=== PATIENT | female | born 1985 | race Hispanic/Latino ===

== ENCOUNTER 2016-12-30 06:03 | Inpatient (IN) | payer MEDICAID ==
[2016-12-30 06:03] VITALS: BMI 29.9
--- NOTE | 2016-12-30 06:29 | ED PDOC ---
Arrival/HPI - General Chief Complaint: Substance Abuse Time Seen by Provider: 12/30/16 06:18 - History of Present Illness Narrative History of Present Illness (Text): 31 y/o F c PMHx heroin abuse p/w heroin overdose. Patient was found in home unresponsive, lying in vomit with bags/syringe next to her. En route, she was administered narcan with immediate increase in alertness. Patient denies any pain at this time, is apologetic, and states that she was not attempting to hurt herself. She states she was using heroin recreationally. Patient's children 's father earlier this year from heroin overdose. At that time, patient was treated at detox and was sober until she reports 1 week ago. She and mother at bedside are agreeable with detox. Past Medical History - Infectious Disease Hx of Infectious Diseases: None - Tetanus Immunization Tetanus Immunization: Unknown, Up to Date - Past Medical History Past Medical History: No Previous - Cardiac Hx Hypertension: No - Pulmonary Hx Tuberculosis: No - Neurological Hx Seizures: Yes (post withdrawl from drugs) - HEENT Hx HEENT Disorder: No - Renal Hx Renal Disorder: No - Endocrine/Metabolic Hx Endocrine Disorders: No - Hematological/Oncological Hx Cancer: No - Integumentary Hx Dermatological Disorder: No - Musculoskeletal/Rheumatological Hx Arthritis: Yes Hx Falls: No - Gastrointestinal Hx Gall Bladder Disease: Yes - Genitourinary/Gynecological Hx Sexually Transmitted Diseases: No - Psychiatric Hx Anxiety: Yes Hx Depression: Yes Hx Substance Use: Yes - Surgical History Hx Cholecystectomy: Yes - Anesthesia Hx Anesthesia: Yes Hx Anesthesia Reactions: No Hx Malignant Hyperthermia: No - Suicidal Assessment Feels Threatened In Home Enviroment: No Family/Social History Family/Social History: No Known Family HX Smoking Status: Heavy Smoker > 10 Cigarettes Daily Hx Alcohol Use: Yes Hx Substance Use: Yes Substance used: heroin, marion Hx Substance Use Treatment: No Allergies/Home Meds Allergies/Adverse Reactions: Allergies No Known Allergies Allergy (Verified 12/26/15 14:41) Review of Systems - Physician Review All systems were reviewed & negative as marked: Yes - Review of Systems Constitutional: absent: Fevers Respiratory: absent: SOB Cardiovascular: absent: Chest Pain Physical Exam - Physical Exam Narrative Physical Exam (Text): Gen: NAD Head: NC/AT Eyes: PERRL. ENT: Rhinorrhea. Neck: Supple Heart: Regular rate. Lungs: Clear. Breathing spontaneously. SaO2 100% on room air. Abd: Soft, nontender. Neuro: Awake, responds to questions. Vital Signs Temp Pulse Resp BP Pulse Ox 12/30/16 06:18 98.4 F 97 H 14 121/80 100 Medical Decision Making ED Course and Treatment: Will observe for respiratory depression. Patient will be worked up for PES evaluation and detox. Will sign out to ED day team. - RAD Interpretation Radiology Orders: 12/30/16 06:18 CHEST PORTABLE [RAD] Stat Disposition/Present on Arrival - Present on Arrival Any Indicators Present on Arrival: No History of DVT/PE: No History of Uncontrolled Diabetes: No Urinary Catheter: No History of Decub. Ulcer: No History Surgical Site Infection Following: None - Disposition Have Diagnosis and Disposition been Completed?: No Diagnosis: Opiate overdose Disposition Time: 06:31 Condition: STABLE
[2016-12-30 06:44] LABS: BASO # 0.02 K/mm3 (0.0-2.0); BASO % 0.3 % (0.0-3.0); EOS # 0.2 (0.0-0.7); EOS % 3.1 % (1.5-5.0); GRAN # 3.71 (1.4-6.5); GRAN % 57.8 % (50.0-68.0); HEMATOCRIT 39.5 % (36.0-48.0); LYMPH # 1.9 (1.2-3.4); LYMPH % 29.5 % (22.0-35.0); MEAN CELL VOLUME 89.6 fl (80.0-105.0); MEAN CORPUSCULAR HEMOGLOBIN 29.9 pg (25.0-35.0); MEAN CORPUSCULAR HGB CONC 33.4 g/dl (31.0-37.0); MEAN PLATELET VOLUME 10.1 fl (7.0-11.0); MONO # 0.6 (0.1-0.6); MONO % 9.3 % (1.0-6.0); RED CELL DISTRIBUTION WIDTH 13.5 % (11.5-14.5); WHITE BLOOD COUNT 6.4 10^3/ul (4.5-11.0)
[2016-12-30 07:08] LABS: ALB/GLOB RATIO 1.3 (1.1-1.8); ALKALINE PHOSPHATASE 57 U/L (38-126); ALT/SGPT 114 U/L (7-56); AST/SGOT 192 U/L (14-36); BLOOD UREA NITROGEN 11 mg/dL (7-21); CALCIUM 9.1 mg/dL (8.4-10.5); CARBON DIOXIDE 28 mmol/L (21-33); CHLORIDE 109 mmol/L (95-110); GFR AFRICAN-AMERICAN > 60; GLUCOSE,RANDOM 80 mg/dL (70-110); POTASSIUM 3.9 mmol/L (3.6-5.0); SODIUM 145 mmol/L (132-148); TOTAL PROTEIN 7.5 g/dL (5.8-8.3)
[2016-12-30 07:31] LABS: URINE BILIRUBIN NEGATIVE (NEGATIVE); URINE BLOOD NEGATIVE (NEGATIVE); URINE GLUCOSE (UA) NEGATIVE (NEGATIVE); URINE KETONE NEGATIVE (NEGATIVE); URINE LEUKOCYTE ESTERASE NEGATIVE Leu/uL (NEGATIVE); URINE PROTEIN 30 mg/dL (<30 mg/dL); URINE UROBILINOGEN 0.2 E.U./dL (<1 E.U./dL)
[2016-12-30 07:37] LABS: URINE APPEARANCE CLEAR (CLEAR); URINE COLOR YELLOW (YELLOW)
[2016-12-30 07:42] LABS: URINE BACTERIA FEW (NEG); URINE RBC NEGATIVE /hpf (0-2); URINE WBC 0 - 2 /hpf (0-6)
--- NOTE | 2016-12-30 09:55 | ED PDOC ---
Physical Exam Vital Signs Reviewed: Yes Vital Signs Temp Pulse Resp BP Pulse Ox 12/30/16 08:45 92 H 16 111/53 L 98 12/30/16 06:18 98.4 F 97 H 14 121/80 100 Temperature: Afebrile Appearance: Positive for: Well-Appearing, Non-Toxic, Comfortable Mental Status: Positive for: Alert and Oriented X 3 - Systems Exam Head: Present: Atraumatic Mouth: Present: Dry Pharnyx: No: ERYTHEMA Neck: Present: Normal Range of Motion Medical Decision Making ED Course and Treatment: 12/30/16 09:55 Patient endorsed to me from previous shift. I reviewed chart and re-examined patient. On exam, patient is awake, alert, no slurred speech. Denies headache, chest pain or shortness of breath. DENIES ABDOMINAL PAIN OR BLEEDING. No cough or fever. Urine triage results reviewed with patient and risks of drug abuse reviewed with patient. Patient has been cleared on previous shift for PES evaluation. PES has evaluated patient and patient agreeable to admission for history of depression and substance abuse. With serial exams in ED she is in no respiratory distress and is neurologically intact. Urine results and beta hcg reviewed with patient in laymen's terms. She states she has been sexually active. Denies abdominal pain or vaginal bleeding or urinary symptoms. 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 - Lab Interpretations Lab Results: 12/30/16 06:30 12/30/16 06:30 Lab Results 12/30/16 07:00: Urine Color Yellow, Urine Appearance Clear, Urine pH 6.0, Ur Specific [place] 1.025, Urine Protein 30 H, Urine Glucose (UA) Negative, Urine Ketones Negative, Urine Blood Negative, Urine Nitrate Negative, Urine Bilirubin Negative, Urine Urobilinogen 0.2, Ur Leukocyte Esterase Negative, Urine RBC Negative, Urine WBC 0 - 2, Ur Epithelial Cells 3 - 4, Urine Bacteria Few, Urine HCG, Qual Positive 12/30/16 07:00: Urine Opiates Screen Positive H, Urine Methadone Screen Negative , Ur Barbiturates Screen Negative, Ur Phencyclidine Scrn Negative, Ur Amphetamines Screen Negative, U Benzodiazepines Scrn Positive H, U Oth Cocaine Metabols Positive H, U Cannabinoids Screen Negative 12/30/16 06:30: Beta HCG, Quant 55.48 H 12/30/16 06:30: Alcohol, Quantitative 133 H 12/30/16 06:30: Salicylates < 1 L, Acetaminophen < 10.0 L 12/30/16 06:30: Sodium 145, Potassium 3.9, Chloride 109, Carbon Dioxide 28, Anion Gap 12, BUN 11, Creatinine 1.0, Est GFR ( Amer) > 60, Est GFR (Non- Af Amer) > 60, Random Glucose 80, Calcium 9.1, Total Bilirubin 1.0, AST 192 H, ALT 114 H, Alkaline Phosphatase 57, Total Protein 7.5, Albumin 4.2, Globulin 3.3 , Albumin/Globulin Ratio 1.3 12/30/16 06:30: WBC 6.4, RBC 4.41, Hgb 13.2, Hct 39.5, MCV 89.6, MCH 29.9, MCHC 33.4, RDW 13.5, Plt Count 241, MPV 10.1, Gran % 57.8, Lymph % (Auto) 29.5, [place] % (Auto) 9.3 H, Eos % (Auto) 3.1, Baso % (Auto) 0.3, Gran # 3.71, Lymph # 1.9, [place] # 0.6, Eos # 0.2, Baso # 0.02 - Medication Orders Current Medication Orders: Discontinued Medications Ondansetron HCl (Zofran Inj) 4 mg IVP STAT STA Stop: 12/30/16 06:42 Disposition/Present on Arrival - Present on Arrival Any Indicators Present on Arrival: No History of DVT/PE: No History of Uncontrolled Diabetes: No Urinary Catheter: No History of Decub. Ulcer: No History Surgical Site Infection Following: None - Disposition Have Diagnosis and Disposition been Completed?: Yes Diagnosis: Opiate overdose, Depression Disposition: HOSPITALIZED Disposition Time: 08:00 Patient Plan: Admission Patient Problems: Current Active Problems Problem Status Onset Opiate overdose Acute Condition: STABLE Forms: [employer] (Kiswahili)
[2016-12-30] MEDS ORDERED: Alum-Mag Hydrox-Simethicone Susp (30 mL) PO PRN (13:25)
[2016-12-30] MEDS ORDERED: Magnesium Hydroxide Susp 30 ml UD PO PRN (13:25)
--- NOTE | 2016-12-30 14:04 | PCM.BM ---
<Jagdish Lawrence - Last Filed: 12/30/16 14:03> Treatment Plan Problems - Problems identified on initial assessmt Hopelessness Date Initiated: 12/30/16 Time Initiated: 14:03 Assessment reference: NA Status: Active Priority: 1 Ineffective Coping Date Initiated: 12/30/16 Time Initiated: 14:03 Assessment reference: NA Status: Active Priority: 2 Treatment assets and liabiliti Patient Assests: cooperative, self-reliant, ADL independent, physically healthy , good support system, negotiates basic needs, cognitively intact, good interpersonal skills Patient Liabilities: relationship conflicts, substance abuse Discharge/Continuing Care - Education Needs Education Needs: Patient Medication, Patient Diagnosis/Disease Process, Patient Coping Skills, Patient Aftercare Safety Plan - Discharge Discharge Criteria: Tolerates medication w/o severe side effects, Normal sleep pattern, Ability to care for self, No longer exhibiting s/s of withdrawal, Reduction of target symptoms Discharge to:: Home <Concetta Aguilar - Last Filed: 12/31/16 16:08> - Diagnosis (1) Substance induced mood disorder Status: Acute Interventions: 12/31/16 16:08 Maintaining sobriety Relapse prevention Psychoeducation Psychopharmacology/adjustment of medications as needed/ monitoring possible side effects Evaluate pt on daily basis Compliance with medications and follow up appointments Suicide and homicide risk assessment and prevention Relapse prevention Reduction of symptoms Improve functional status Family involvement As outpatient: cognitive behavioral therapy (2) Opioid use disorder, moderate, dependence Status: Acute Interventions: 12/31/16 16:08 Monitoring withdrawal symptoms Medical detoxification Pharmacotherapy for alcohol/benzos/opioid dependence Maintaining sobriety Relapse prevention Possible rehabilitation Motivational interviewing 12-step programs: AA meetings <Madeline Graham - Last Filed: 12/31/16 16:33>
[2016-12-31 08:03] LABS: CHOLESTEROL 148 mg/dL (130-200); GLUCOSE,FASTING 89 mg/dL (65-110)
[2016-12-31 08:12] LABS: FREE T4 0.83 ng/dL (0.78-2.19)
[2016-12-31 08:26] LABS: THYROID STIMULATING HORMONE 0.41 mIU/mL (0.46-4.68)
--- NOTE | 2016-12-31 10:20 | CARD ---
APPROVED REPORT EKG Measurement Heart [id number] <Conclusion> Normal sinus rhythm Normal ECG
--- NOTE | 2016-12-31 14:36 | PCM.PSYCH ---
Initial Psychiatric Evaluation - Initial Psychiatric Evaluation Type of Admission: Voluntary Legal Status: Capacity Chief Complaint (in patient's own words): "I was careless if I am or alive" Patient's Reaction to Hospitalization: pt was admitted to r/o s/p intentional overdose on opioids. History of Present Illness and Precipitating Events: shortly pt is 31 yo Female, with h/o substance use disorder, pt was found unresponsive by family member, pt was given narcan with immediate response, pt was admitted to the psych unit for evaluation and observation of possible intentional overdose on drugs. pt was seen and examined, discussed with RNs, staff. pt presented with good personal hygiene, was calm, cooperative, socially appropriate, good ADLs. pt adamantly denied that she wanted to kill herself prior to this hospitalization, but "I was careless if I was of alive when they interviewed me at the Emergency room", pt said she wanted to be admitted because she realized that she needed to have help with her depressive symptoms. pt said that her in February 2016, s/p overdose on drugs, pt said she was clean and sober for the past 9months but relapsed "two to three weeks ago". pt said she was snorting about five bags of heroin a day, every other day bag of cocaine, and was drinking alcohol every other day. pt said that she was feeling guilty about her relapse. pt said that she was feeling depressed because her , "but I was able to function", pt said that she was not feeling hopeless but "I have my moments", pt also said at times she "could cry at the shower and be okay afterwards". pt denied being abused reported that she smokes about a pack a day, counseling provided. pt denied v/a/t hallucinations, no paranoid ideation elicited. no manic symptoms elicited. past psych h/o: [facility]. pt denied suicidal attempts, denied suicide in the family. pt reported family h/o "mental illness", but not sure what mental illness. Medical h/o: pt denied any major medical issues, h/o abnormal Pap smear, UA and blood work showed pt is . all meds were stopped, MVI started, pt was seen by medical team, d/w . social h/o: pt does not work, mother of 3, pt's mother has custody over pt's kids, but pt has visitation rights. Vital Signs Temp Pulse Resp BP Pulse Ox 12/31/16 06:58 98.2 F 58 L 18 111/72 98 12/30/16 16:00 76 91/56 L 12/30/16 11:58 16 12/30/16 10:00 98.2 F 90 18 120/78 99 12/30/16 08:45 92 H 16 111/53 L 98 12/30/16 06:18 98.4 F 97 H 14 121/80 100 12/30/16 06:30 12/30/16 06:30 Lab Results 12/31/16 07:39: Free T4 0.83, TSH 3rd Generation 0.41 L 12/31/16 07:39: Fasting Glucose 89, Triglycerides 125, Cholesterol 148, LDL Cholesterol Direct 97, HDL Cholesterol 39 12/30/16 07:00: Urine Color Yellow, Urine Appearance Clear, Urine pH 6.0, Ur Specific [place] 1.025, Urine Protein 30 H, Urine Glucose (UA) Negative, Urine Ketones Negative, Urine Blood Negative, Urine Nitrate Negative, Urine Bilirubin Negative, Urine Urobilinogen 0.2, Ur Leukocyte Esterase Negative, Urine RBC Negative, Urine WBC 0 - 2, Ur Epithelial Cells 3 - 4, Urine Bacteria Few, Urine HCG, Qual Positive 12/30/16 07:00: Urine Opiates Screen Positive H, Urine Methadone Screen Negative , Ur Barbiturates Screen Negative, Ur Phencyclidine Scrn Negative, Ur Amphetamines Screen Negative, U Benzodiazepines Scrn Positive H, U Oth Cocaine Metabols Positive H, U Cannabinoids Screen Negative 12/30/16 06:30: Beta HCG, Quant 55.48 H 12/30/16 06:30: Alcohol, Quantitative 133 H 12/30/16 06:30: Salicylates < 1 L, Acetaminophen < 10.0 L 12/30/16 06:30: Sodium 145, Potassium 3.9, Chloride 109, Carbon Dioxide 28, Anion Gap 12, BUN 11, Creatinine 1.0, Est GFR ( Amer) > 60, Est GFR (Non- Af Amer) > 60, Random Glucose 80, Calcium 9.1, Total Bilirubin 1.0, AST 192 H, ALT 114 H, Alkaline Phosphatase 57, Total Protein 7.5, Albumin 4.2, Globulin 3.3 , Albumin/Globulin Ratio 1.3 12/30/16 06:30: WBC 6.4, RBC 4.41, Hgb 13.2, Hct 39.5, MCV 89.6, MCH 29.9, MCHC 33.4, RDW 13.5, Plt Count 241, MPV 10.1, Gran % 57.8, Lymph % (Auto) 29.5, [place] % (Auto) 9.3 H, Eos % (Auto) 3.1, Baso % (Auto) 0.3, Gran # 3.71, Lymph # 1.9, [place] # 0.6, Eos # 0.2, Baso # 0.02 MSE: pt was alert, oriented, pleasant and cooperative, speech: normal rate/tone/ quality and quantity, pt described her mood as "okay", pt's affect was reactive , mood congruent, thought process was coherent and goal directed, thought content: denied v/a/t hallucinations, denied paranoid ideation/ pt denied thoughts of harming self or others, I/J are limited, impulses are well controlled. Impression: r/o MDD r/o substance induced mood disorder r/o polysubstance abuse and dependence opioid addiction no physical signs of withdrawals ? Plan: Treatment plan: Milieu/structure/supportive therapy Medical consult appreciated, see medical team note for more detailed info consultation for discharge plan and social issues Med management, all meds were d/c (pt might be ) will start MVI Family involvement Follow up on labs Will monitor closely evaluation for d/c planning Pt was educated about risk/benefits and alternatives of medications, coping strategies (safety plan, suicide prevention), relapse prevention, importance of follow up with psychiatrist and therapist, stay away from drugs/alcohol/smoking Current Medications: Active Medications Generic Name Dose Route Start Last Admin Trade Name Freq PRN Reason Stop Dose Admin Acetaminophen 650 mg 12/30/16 13:25 Tylenol 325mg Tab PO Q4 PRN Pain, Mild (1-3) Al Hydrox/Mg Hydrox/Simethicone 30 ml 12/30/16 13:25 Maalox Plus 30 Ml PO DAILY PRN Upset Stomach Clonidine HCl 0.1 mg 12/30/16 13:26 12/30/16 14:18 Catapres PO 0.1 mg Q12H PRN Administration Symptoms of Opiate Withdrawal Lorazepam 0.5 mg 12/31/16 11:55 Ativan PO BID PRN Anxiety Protocol Magnesium Hydroxide 30 ml 12/30/16 13:25 Milk Of Magnesia PO DAILY PRN Constipation Multivitamins 1 tab 01/01/17 08:00 Thera Tab PO 0800 GARY Nicotine 1 patch 12/30/16 14:00 12/31/16 08:27 Nicoderm Cq TD 1 patch DAILY GARY Administration Zaleplon 5 mg 12/30/16 13:26 12/30/16 21:26 Sonata PO 5 mg HS PRN Administration Insomnia Past Psychiatric History - Past Psychiatric History Pertinent Medical Hx (Current Medical&Sleep Prob, Allergies): Allergies Allergy/AdvReac Type Severity Reaction Status Date / Time No Known Allergies Allergy Verified 12/30/16 06:27 RX: No Known Home Med 12/30/16 DSM 5 DX - Recommended/Plan of Treatment Discharge Plan and Discharge Criteria: Pt will be not depressed or manic, will be more hopeful, will be not psychotic or anxious, will be not having thoughts of harming self or others, will be tolerating medications well, will not have major side effects, will be able to function, will not pose threat to self or others. - Smoking Cessation Smoking Cessation Initiated: Yes
--- NOTE | 2016-12-31 21:22 | CON ---
DATE: HISTORY OF PRESENT ILLNESS: The patient is a 31-year-old who came to emergency room when she was found unresponsive at home. She was found to overdose on heroin. She vomited on the bag and the syringe was next to her. She was given Narcan and the patient became responsive. By the time, the patient came to ER, she was awake and alert. Upon inquiring on examination, the patient seems to be doing well. She is more concerned about her positive test. The patient states she was and had 2 kids and her in February. She recently got into one relationship lately. Other than that she has no significant past medical history. ALLERGIES: SHE IS NOT ALLERGIC TO ANY MEDICATIONS. MEDICATIONS: She does not take any medications at home. SOCIAL HISTORY: She was , but currently she is single. She does have a history of drug abuse especially heroin. She does drink alcohol. She smokes almost half a pack a day. PHYSICAL EXAMINATION: GENERAL: She is awake, alert, oriented, and communicative. VITAL SIGNS: She is afebrile, pulse 58, respirations 18, and blood pressure 111/52. LUNGS: Bilateral fair airflow. No rhonchi or crackle. HEART: S1 and S2 audible. ABDOMEN: Soft and nontender. No rebound. No guarding. NEUROLOGIC: The patient is awake, alert, oriented, and able to communicate. LABORATORY DATA: WBC 6.4, hemoglobin 13, hematocrit 39, and platelet of 241. Chemistry: Sodium 145, potassium 3.9, chloride 109, CO2 of 28, BUN 11, and creatinine 1.0. Blood sugar of 80. LFT shows AST 192 and ALT 114. Beta hCG is 55.4. TSH is suppressed. Urine test is positive. Urine tox positive for opioids. Alcohol level is 133. She is also positive for cocaine and benzodiazepines. ASSESSMENT: 1. Status post heroin overdose. 2. Abnormal liver function tests. 3. Alcohol abuse. 4. Positive test. The patient states because of abnormal Pap smear, she had partial cervical excision done. She states she did not get for more than 7 to 8 years and she does not know how she got at this time. PLAN: I will order for transvaginal sonogram, order for abdominal sonogram to rule out cholelithiasis and I also order for hepatitis profile for morning and see her trend of LFTs if it is going up or down, so we will repeat LFTs in a.m. Abimael Alvarado MD
--- NOTE | 2016-12-31 22:59 | US ---
EXAM: US , Transvaginal CLINICAL HISTORY: 31 years old, female; Pain; complicated by abdominal or pelvic pain; Lower; First trimester; Gestational age or lmp: Urine teast positive; Additional info: Positive preg TECHNIQUE: Real-time transvaginal obstetrical ultrasound of the maternal pelvis and a first trimester with image documentation. Transvaginal imaging was used for better evaluation of the fetus and adnexa. COMPARISON: No relevant prior studies available. FINDINGS: Gestation: No intrauterine gestation is identified. Placenta/amniotic fluid: Cannot be adequately evaluated due to the early gestational age. Uterus/cervix: A trilaminar appearance to the endometrium is present without thickening measuring 5 mm. Ovaries: The right ovary is unremarkable in echogenicity and size measuring 3.4 x 1.3 x 1.6 cm. The left ovary measures 3.5 x 2.6 x 2.2 cm. Within the left ovary is a complex cystic focus measuring 12 x 9 x 12 mm, possibly a corpus luteal cyst. Free fluid: No free fluid. IMPRESSION: No intrauterine gestation is detected. Complex cystic focus within the left ovary, for which correlation with serum beta-hCG is recommended. Serial beta hCG and short term followup is recommended.
[2017-01-01 06:54] VITALS: O2SAT 100
[2017-01-01 08:18] LABS: ALB/GLOB RATIO 1.3 (1.1-1.8); ALKALINE PHOSPHATASE 55 U/L (38-126); ALT/SGPT 65 U/L (7-56); AST/SGOT 37 U/L (14-36); BILIRUBIN,TOTAL 1.9 mg/dL (0.2-1.3); BLOOD UREA NITROGEN 8 mg/dL (7-21); CALCIUM 9.6 mg/dL (8.4-10.5); CARBON DIOXIDE 29 mmol/L (21-33); CHLORIDE 108 mmol/L (98-107); GFR AFRICAN-AMERICAN > 60; GLUCOSE,RANDOM 100 mg/dL (70-110); SODIUM 141 mmol/L (132-148); TOTAL PROTEIN 7.2 g/dL (5.8-8.3)
[2017-01-01] MEDS: Multivitamin Therapeutic Tab PO SCH (08:38)
--- NOTE | 2017-01-01 09:44 | US ---
HISTORY: liver profile abnormal COMPARISON: None. TECHNIQUE: Sonographic evaluation of the abdomen. FINDINGS: LIVER: Measures 14.4 cm. Diffusely increased echogenicity of the liver parenchyma. Consistent with fatty infiltration. No mass. No biliary dilatation. Smooth contour. Hepatopetal portal venous flow demonstrated. GALLBLADDER: Status post cholecystectomy. COMMON BILE DUCT: Measures 4 mm. No stones. No dilatation. PANCREAS: Unremarkable as visualized. No mass. No ductal dilatation. RIGHT KIDNEY: Measures 11.2cm. Normal echogenicity. No calculus, mass, or hydronephrosis. LEFT KIDNEY: Measures 10.7cm. Normal echogenicity. No calculus, mass, or hydronephrosis. SPLEEN: Normal in size and contour. No mass. AORTA: No aneurysmal dilatation. IVC: Unremarkable. OTHER FINDINGS: None. IMPRESSION: Fatty infiltration of the liver. Status post cholecystectomy. Otherwise unremarkable examination. Preliminary interpretation of this examination was reported by [facility] at 8:15 p.m. on 12/31/2016. There is concurrence of this report with the preliminary interpretation.
--- NOTE | 2017-01-01 14:39 | PCM.PYCHPN ---
Psychiatric Progress Note - Psychiatric Progress Note Patient seen today, length of contact: 30min Patient Chief Complaint: "I am in pain, I feel very anxious, I am withdrawing..." Medical Problems: abnormal papsmear pt is not , pelvic USG negative for Diagnostic Results: 12/30/16 06:30 01/01/17 07:50 Lab Results 01/01/17 07:50: Sodium 141, Potassium 4.0, Chloride 108 H, Carbon Dioxide 29, Anion Gap 8 L, BUN 8, Creatinine 0.9, Est GFR ( Amer) > 60, Est GFR (Non- Af Amer) > 60, Random Glucose 100, Calcium 9.6, Total Bilirubin 1.9 H, AST 37 H D, ALT 65 H, Alkaline Phosphatase 55, Total Protein 7.2, Albumin 4.1, Globulin 3.2, Albumin/Globulin Ratio 1.3 12/31/16 07:39: RPR Nonreactive 12/31/16 07:39: Free T4 0.83, TSH 3rd Generation 0.41 L 12/31/16 07:39: Fasting Glucose 89, Triglycerides 125, Cholesterol 148, LDL Cholesterol Direct 97, HDL Cholesterol 39 12/30/16 07:00: Urine Color Yellow, Urine Appearance Clear, Urine pH 6.0, Ur Specific [place] 1.025, Urine Protein 30 H, Urine Glucose (UA) Negative, Urine Ketones Negative, Urine Blood Negative, Urine Nitrate Negative, Urine Bilirubin Negative, Urine Urobilinogen 0.2, Ur Leukocyte Esterase Negative, Urine RBC Negative, Urine WBC 0 - 2, Ur Epithelial Cells 3 - 4, Urine Bacteria Few, Urine HCG, Qual Positive 12/30/16 07:00: Urine Opiates Screen Positive H, Urine Methadone Screen Negative , Ur Barbiturates Screen Negative, Ur Phencyclidine Scrn Negative, Ur Amphetamines Screen Negative, U Benzodiazepines Scrn Positive H, U Oth Cocaine Metabols Positive H, U Cannabinoids Screen Negative 12/30/16 06:30: Beta HCG, Quant 55.48 H 12/30/16 06:30: Alcohol, Quantitative 133 H 12/30/16 06:30: Salicylates < 1 L, Acetaminophen < 10.0 L 12/30/16 06:30: Sodium 145, Potassium 3.9, Chloride 109, Carbon Dioxide 28, Anion Gap 12, BUN 11, Creatinine 1.0, Est GFR ( Amer) > 60, Est GFR (Non- Af Amer) > 60, Random Glucose 80, Calcium 9.1, Total Bilirubin 1.0, AST 192 H, ALT 114 H, Alkaline Phosphatase 57, Total Protein 7.5, Albumin 4.2, Globulin 3.3 , Albumin/Globulin Ratio 1.3 12/30/16 06:30: WBC 6.4, RBC 4.41, Hgb 13.2, Hct 39.5, MCV 89.6, MCH 29.9, MCHC 33.4, RDW 13.5, Plt Count 241, MPV 10.1, Gran % 57.8, Lymph % (Auto) 29.5, [place] % (Auto) 9.3 H, Eos % (Auto) 3.1, Baso % (Auto) 0.3, Gran # 3.71, Lymph # 1.9, [place] # 0.6, Eos # 0.2, Baso # 0.02 Vital Signs Temp Pulse Resp BP Pulse Ox 01/01/17 08:38 57 L 128/64 01/01/17 06:53 98.4 F 57 L 20 128/64 100 12/31/16 17:55 80 122/77 12/31/16 15:00 99.1 F 81 122/77 12/31/16 06:58 98.2 F 58 L 18 111/72 98 12/30/16 16:00 76 91/56 L 12/30/16 11:58 16 12/30/16 10:00 98.2 F 90 18 120/78 99 12/30/16 08:45 92 H 16 111/53 L 98 12/30/16 06:18 98.4 F 97 H 14 121/80 100 pelvic USG negative for intrauterum gestation abdomnial USG showed fatty infiltration of liver DSM 5 Symptoms Update: shortly pt is 31 yo Female, with h/o substance use disorder, pt was found unresponsive by family member, pt was given narcan with immediate response, pt was admitted to the psych unit for evaluation and observation of possible intentional overdose on drugs. pt was seen and examined, discussed with RNs, staff. pt was seen at the tx team meeting room with LINNEA Joseph. pt said she is not doing well, said that she had a "worst night ever". pt said she is withdrawing and feeling very anxious, "I was not able to sleep at all. pt is aware of the result of USG, "I am happy that I am not and my mind is not occupied with this, I could concentrate on rehab and things what I need to do". pt denied v/a/t hallucinations, no paranoid ideation elicited. no manic symptoms elicited. MSE: pt was alert, oriented, pleasant and cooperative, speech: normal rate/tone/ quality and quantity, pt described her mood as "okay, now I need to concentrate on my addiction", pt's affect was reactive, mood congruent, thought process was coherent and goal directed, thought content: denied v/a/t hallucinations, denied paranoid ideation/ pt denied thoughts of harming self or others, I/J are limited, impulses are well controlled. Impression: r/o MDD r/o adjustment disorder r/o grief r/o substance induced mood disorder r/o polysubstance abuse and dependence opioid addiction no physical signs of withdrawals no intrauterine Plan: Treatment plan: Milieu/structure/supportive therapy Medical consult appreciated, see medical team note for more detailed info SW consultation for discharge plan and social issues Med management ativan 1mg po qid for anxiety trazodone for depression and insomnia MVI will f/u on Beta CGT tomorrow Family involvement Follow up on labs Will monitor closely SW evaluation for d/c planning Pt was educated about risk/benefits and alternatives of medications, coping strategies (safety plan, suicide prevention), relapse prevention, importance of follow up with psychiatrist and therapist, stay away from drugs/alcohol/smoking Medication Change: Yes (ativan and trazodone started) Medical Record Reviewed: Yes Consults ordered or reviewed: medical consult appreciated Goal/Treatment Plan - Goal/Treatment Plan Need for Continued Stay: Remain at risks for inpatient hospitalization, Severe depression anxiety, Discharge may exacerbated symptoms, Severe functional impairment Estimated Date of D/C: 01/03/17 (will monitor closely)
[2017-01-02] MEDS: Multivitamin Therapeutic Tab PO SCH (08:08)
--- NOTE | 2017-01-02 08:53 | PN ---
DATE: 01/01/2017 SUBJECTIVE: The patient is a 31-year-old, was admitted after she was found unresponsive. She was found to have drug. She was positive for opiates, benzodiazepine, and cocaine in her urine drug screen. The patient had partial cervical excision done and she was found to have positive hCG, however, transvaginal sonogram shows no intrauterine gestation. Right ovary is unremarkable and left ovary measured 3.5 x 2.6 x 2.2 and left ovary has a complex cyst. Given these findings, she has positive beta-hCG. We will order for one beta-hCG level for the morning since transvaginal sonogram is inconclusive. We will do serial beta-hCG to see if this is advancing or choriocarcinoma and we will follow up with patient's lab work. Abimael Alvarado MD
--- NOTE | 2017-01-02 15:40 | PCM.PYCHPN ---
Psychiatric Progress Note - Psychiatric Progress Note Patient seen today, length of contact: 30min Patient Chief Complaint: "I feel up and down" Medical Problems: abnormal papsmear pt might be Diagnostic Results: 12/30/16 06:30 01/01/17 07:50 Lab Results 01/01/17 07:50: Sodium 141, Potassium 4.0, Chloride 108 H, Carbon Dioxide 29, Anion Gap 8 L, BUN 8, Creatinine 0.9, Est GFR ( Amer) > 60, Est GFR (Non- Af Amer) > 60, Random Glucose 100, Calcium 9.6, Total Bilirubin 1.9 H, AST 37 H D, ALT 65 H, Alkaline Phosphatase 55, Total Protein 7.2, Albumin 4.1, Globulin 3.2, Albumin/Globulin Ratio 1.3 12/31/16 07:39: RPR Nonreactive 12/31/16 07:39: Free T4 0.83, TSH 3rd Generation 0.41 L 12/31/16 07:39: Fasting Glucose 89, Triglycerides 125, Cholesterol 148, LDL Cholesterol Direct 97, HDL Cholesterol 39 12/30/16 07:00: Urine Color Yellow, Urine Appearance Clear, Urine pH 6.0, Ur Specific [place] 1.025, Urine Protein 30 H, Urine Glucose (UA) Negative, Urine Ketones Negative, Urine Blood Negative, Urine Nitrate Negative, Urine Bilirubin Negative, Urine Urobilinogen 0.2, Ur Leukocyte Esterase Negative, Urine RBC Negative, Urine WBC 0 - 2, Ur Epithelial Cells 3 - 4, Urine Bacteria Few, Urine HCG, Qual Positive 12/30/16 07:00: Urine Opiates Screen Positive H, Urine Methadone Screen Negative , Ur Barbiturates Screen Negative, Ur Phencyclidine Scrn Negative, Ur Amphetamines Screen Negative, U Benzodiazepines Scrn Positive H, U Oth Cocaine Metabols Positive H, U Cannabinoids Screen Negative 12/30/16 06:30: Beta HCG, Quant 55.48 H 12/30/16 06:30: Alcohol, Quantitative 133 H 12/30/16 06:30: Salicylates < 1 L, Acetaminophen < 10.0 L 12/30/16 06:30: Sodium 145, Potassium 3.9, Chloride 109, Carbon Dioxide 28, Anion Gap 12, BUN 11, Creatinine 1.0, Est GFR ( Amer) > 60, Est GFR (Non- Af Amer) > 60, Random Glucose 80, Calcium 9.1, Total Bilirubin 1.0, AST 192 H, ALT 114 H, Alkaline Phosphatase 57, Total Protein 7.5, Albumin 4.2, Globulin 3.3 , Albumin/Globulin Ratio 1.3 12/30/16 06:30: WBC 6.4, RBC 4.41, Hgb 13.2, Hct 39.5, MCV 89.6, MCH 29.9, MCHC 33.4, RDW 13.5, Plt Count 241, MPV 10.1, Gran % 57.8, Lymph % (Auto) 29.5, [place] % (Auto) 9.3 H, Eos % (Auto) 3.1, Baso % (Auto) 0.3, Gran # 3.71, Lymph # 1.9, [place] # 0.6, Eos # 0.2, Baso # 0.02 Vital Signs Temp Pulse Resp BP Pulse Ox 01/01/17 08:38 57 L 128/64 01/01/17 06:53 98.4 F 57 L 20 128/64 100 12/31/16 17:55 80 122/77 12/31/16 15:00 99.1 F 81 122/77 12/31/16 06:58 98.2 F 58 L 18 111/72 98 12/30/16 16:00 76 91/56 L 12/30/16 11:58 16 12/30/16 10:00 98.2 F 90 18 120/78 99 12/30/16 08:45 92 H 16 111/53 L 98 12/30/16 06:18 98.4 F 97 H 14 121/80 100 pelvic USG negative for intrauterum gestation abdomnial USG showed fatty infiltration of liver Laboratory Results - last 24 hr 01/01/17 01/02/17 07:50 07:30 Beta HCG, Quant 253.57 H Hepatitis A IgM Ab Negative Hep Bs Antigen Negative Hep B Core IgM Ab Negative Hepatitis C Antibody Reactive DSM 5 Symptoms Update: shortly pt is 31 yo Female, with h/o substance use disorder, pt was found unresponsive by family member, pt was given narcan with immediate response, pt was admitted to the psych unit for evaluation and observation of possible intentional overdose on drugs. pt was seen and examined, discussed with RNs, staff. pt was seen at the tx team meeting room with medical students, resident, RECYCLING OPERATIONS MANAGER. pt said she is doing better, pt said she had a good night sleep. Pt's BCGT keep increasing, this freelance writer spoke to the [employer] SALESPERSON thermostatic controls supervisor [phone] over the phone, it was recommended to do Beta CGT q48 hrs, and usually at the level of 1500 BCGT will be visible inside the uterus, Exhauster suggestion it is very early . pt wants to keep the , wants to speak to mother. Pt was educated about it, pt was advised to stay away from drugs, take vitamins, f/u with Exhauster. Pt is aware of dangerousness of benzos, but pt UDS was positive for benzos prior admission, risk of withdrawal is still existing, pt was educated about trazodone, but use with caution in third trimester of , pt was educated about that. pt denied v/a/t hallucinations, no paranoid ideation elicited. no manic symptoms elicited. MSE: pt was alert, oriented, pleasant and cooperative, speech: normal rate/tone/ quality and quantity, pt described her mood as "it is like a up and down", pt's affect was reactive, mood congruent, thought process was coherent and goal directed, thought content: denied v/a/t hallucinations, denied paranoid ideation / pt denied thoughts of harming self or others, I/J are limited, impulses are well controlled. Impression: r/o MDD r/o adjustment disorder r/o grief r/o substance induced mood disorder r/o polysubstance abuse and dependence opioid addiction no physical signs of withdrawals as per Exhauster, might be early Plan: Treatment plan: Milieu/structure/supportive therapy Medical consult appreciated, see medical team note for more detailed info SW consultation for discharge plan and social issues Med management ativan 1mg po tid for anxiety trazodone for depression and insomnia MVI will f/u on Beta CGT [id number] Family involvement Follow up on labs Will monitor closely evaluation for d/c planning Pt was educated about risk/benefits and alternatives of medications, coping strategies (safety plan, suicide prevention), relapse prevention, importance of follow up with psychiatrist and therapist, stay away from drugs/alcohol/smoking Medication Change: Yes (ativan decresed) Medical Record Reviewed: Yes Goal/Treatment Plan - Goal/Treatment Plan Need for Continued Stay: Remain at risks for inpatient hospitalization, Severe depression anxiety, Discharge may exacerbated symptoms, Severe functional impairment Estimated Date of D/C: 01/03/17 (will monitor closely)
[2017-01-03] MEDS: Multivitamin Therapeutic Tab PO SCH (08:18)
--- NOTE | 2017-01-03 10:18 | PCM.PYCHPN ---
Psychiatric Progress Note - Psychiatric Progress Note Patient seen today, length of contact: 30min Patient Chief Complaint: "I am okay today" Medical Problems: abnormal papsmear pt might be Diagnostic Results: 12/30/16 06:30 01/01/17 07:50 Lab Results 01/01/17 07:50: Sodium 141, Potassium 4.0, Chloride 108 H, Carbon Dioxide 29, Anion Gap 8 L, BUN 8, Creatinine 0.9, Est GFR ( Amer) > 60, Est GFR (Non- Af Amer) > 60, Random Glucose 100, Calcium 9.6, Total Bilirubin 1.9 H, AST 37 H D, ALT 65 H, Alkaline Phosphatase 55, Total Protein 7.2, Albumin 4.1, Globulin 3.2, Albumin/Globulin Ratio 1.3 12/31/16 07:39: RPR Nonreactive 12/31/16 07:39: Free T4 0.83, TSH 3rd Generation 0.41 L 12/31/16 07:39: Fasting Glucose 89, Triglycerides 125, Cholesterol 148, LDL Cholesterol Direct 97, HDL Cholesterol 39 12/30/16 07:00: Urine Color Yellow, Urine Appearance Clear, Urine pH 6.0, Ur Specific [place] 1.025, Urine Protein 30 H, Urine Glucose (UA) Negative, Urine Ketones Negative, Urine Blood Negative, Urine Nitrate Negative, Urine Bilirubin Negative, Urine Urobilinogen 0.2, Ur Leukocyte Esterase Negative, Urine RBC Negative, Urine WBC 0 - 2, Ur Epithelial Cells 3 - 4, Urine Bacteria Few, Urine HCG, Qual Positive 12/30/16 07:00: Urine Opiates Screen Positive H, Urine Methadone Screen Negative , Ur Barbiturates Screen Negative, Ur Phencyclidine Scrn Negative, Ur Amphetamines Screen Negative, U Benzodiazepines Scrn Positive H, U Oth Cocaine Metabols Positive H, U Cannabinoids Screen Negative 12/30/16 06:30: Beta HCG, Quant 55.48 H 12/30/16 06:30: Alcohol, Quantitative 133 H 12/30/16 06:30: Salicylates < 1 L, Acetaminophen < 10.0 L 12/30/16 06:30: Sodium 145, Potassium 3.9, Chloride 109, Carbon Dioxide 28, Anion Gap 12, BUN 11, Creatinine 1.0, Est GFR ( Amer) > 60, Est GFR (Non- Af Amer) > 60, Random Glucose 80, Calcium 9.1, Total Bilirubin 1.0, AST 192 H, ALT 114 H, Alkaline Phosphatase 57, Total Protein 7.5, Albumin 4.2, Globulin 3.3 , Albumin/Globulin Ratio 1.3 12/30/16 06:30: WBC 6.4, RBC 4.41, Hgb 13.2, Hct 39.5, MCV 89.6, MCH 29.9, MCHC 33.4, RDW 13.5, Plt Count 241, MPV 10.1, Gran % 57.8, Lymph % (Auto) 29.5, [place] % (Auto) 9.3 H, Eos % (Auto) 3.1, Baso % (Auto) 0.3, Gran # 3.71, Lymph # 1.9, [place] # 0.6, Eos # 0.2, Baso # 0.02 Vital Signs Temp Pulse Resp BP Pulse Ox 01/01/17 08:38 57 L 128/64 01/01/17 06:53 98.4 F 57 L 20 128/64 100 12/31/16 17:55 80 122/77 12/31/16 15:00 99.1 F 81 122/77 12/31/16 06:58 98.2 F 58 L 18 111/72 98 12/30/16 16:00 76 91/56 L 12/30/16 11:58 16 12/30/16 10:00 98.2 F 90 18 120/78 99 12/30/16 08:45 92 H 16 111/53 L 98 12/30/16 06:18 98.4 F 97 H 14 121/80 100 pelvic USG negative for intrauterum gestation abdomnial USG showed fatty infiltration of liver Laboratory Results - last 24 hr 01/01/17 01/02/17 07:50 07:30 Beta HCG, Quant 253.57 H Hepatitis A IgM Ab Negative Hep Bs Antigen Negative Hep B Core IgM Ab Negative Hepatitis C Antibody Reactive Laboratory Results - last 72 hr 12/31/16 01/01/17 01/01/17 07:39 07:50 07:50 Sodium 141 Potassium 4.0 Chloride 108 H Carbon Dioxide 29 Anion Gap 8 L BUN 8 Creatinine 0.9 Est GFR ( Amer) > 60 Est GFR (Non-Af Amer) > 60 Random Glucose 100 Calcium 9.6 Total Bilirubin 1.9 H AST 37 H D ALT 65 H Alkaline Phosphatase 55 Total Protein 7.2 Albumin 4.1 Globulin 3.2 Albumin/Globulin Ratio 1.3 Beta HCG, Quant RPR Nonreactive Hepatitis A IgM Ab Negative Hep Bs Antigen Negative Hep B Core IgM Ab Negative Hepatitis C Antibody Reactive 01/02/17 07:30 Sodium Potassium Chloride Carbon Dioxide Anion Gap BUN Creatinine Est GFR ( Amer) Est GFR (Non-Af Amer) Random Glucose Calcium Total Bilirubin AST ALT Alkaline Phosphatase Total Protein Albumin Globulin Albumin/Globulin Ratio Beta HCG, Quant 253.57 H RPR Hepatitis A IgM Ab Hep Bs Antigen Hep B Core IgM Ab Hepatitis C Antibody DSM 5 Symptoms Update: shortly pt is 31 yo Female, with h/o substance use disorder, pt was found unresponsive by family member, pt was given narcan with immediate response, pt was admitted to the psych unit for evaluation and observation of possible intentional overdose on drugs. pt was seen and examined, discussed with RNs, staff, as per staff pt was calm, cooperative, socially appropriate, no behavioral problems. pt was seen at the TV room, pt said she did not sleep last night, pt said that she will be not accepted to rehab because "of my ". Pt was visited by her mother yesterday, "it was a good visit", pt said that she is not sure if she wants to keep or not, "I will think about it...", pt wants to be sure if she is or not, wants to be seen by her POLE CLASSIFIER doctor. pt said her mood is "little better", pt denied thoughts of harming self or others. pt was educated about meds, risk, benefits and alternatives, was educated about the plan to wean off ativan. pt is aware of blood work tomorrow. pt denied v/a/t hallucinations, no paranoid ideation elicited. no manic symptoms elicited. MSE: pt was alert, oriented, pleasant and cooperative, speech: normal rate/tone/ quality and quantity, pt described her mood as "it is okay", pt's affect was reactive, mood congruent, thought process was coherent and goal directed, thought content: denied v/a/t hallucinations, denied paranoid ideation/ pt denied thoughts of harming self or others, I/J are limited, impulses are well controlled. Impression: r/o MDD r/o adjustment disorder r/o grief r/o substance induced mood disorder r/o polysubstance abuse and dependence opioid addiction no physical signs of withdrawals as per High School Music Instructor, might be early Plan: Treatment plan: Milieu/structure/supportive therapy Medical consult appreciated, see medical team note for more detailed info SW consultation for discharge plan and social issues Med management ativan 0.5mg po tid for anxiety trazodone for depression and insomnia MVI will f/u on Beta CGT tomorrow Family involvement Follow up on labs Will monitor closely SW evaluation for d/c planning Pt was educated about risk/benefits and alternatives of medications, coping strategies (safety plan, suicide prevention), relapse prevention, importance of follow up with psychiatrist and therapist, stay away from drugs/alcohol/smoking Medication Change: Yes (ativan decresed) Medical Record Reviewed: Yes Consults ordered or reviewed: medical consult appreciated High School Music Instructor team was contacted, discussed case with Dr. Parks 01/02/17, see notes for more detailed info Goal/Treatment Plan - Goal/Treatment Plan Need for Continued Stay: Remain at risks for inpatient hospitalization, Severe depression anxiety, Discharge may exacerbated symptoms, Severe functional impairment Estimated Date of D/C: 01/04/17 (will monitor closely)
--- NOTE | 2017-01-03 15:53 | PN ---
DATE: SUBJECTIVE: The patient is a 31-year-old, seen and examined, lying in bed, seems to be comfortable, complaining of some breast tenderness and suprapubic discomfort. She does not know if this is her uterine cramps or if this withdrawal. PHYSICAL EXAMINATION: VITAL SIGNS: She is afebrile, pulse 82, respirations 18, and blood pressure 109/57. LUNGS: Bilateral good airflow. No rhonchi or crackle. HEART: S1 and S2, audible. ABDOMEN: Soft, nontender. No rebound. No guarding. NEUROLOGIC: The patient is awake, alert, oriented, and communicative. LABORATORY DATA: WBC 6.4, hemoglobin 13, hematocrit 39, and platelets of 241. Chemistry: Sodium 141, potassium 4.0, chloride 108, CO2 29, BUN 8, and creatinine 0.9. Blood sugar of 100. Total bilirubin 1.9. AST 37 and ALT 65. Her beta hCG has increased to 253 as compared to 53 as compared to 55 two days ago. ASSESSMENT AND PLAN: 1. History of alcohol and polysubstance abuse. 2. Positive hCG and had transvaginal sonogram that is inconclusive, this is by Dr. Hylton. We will call for environmental health and safety intern consult for further recommendations. Abimael Alvarado MD
[2017-01-04 06:52] VITALS: BP 103/65; PULSE 62; RESP 20; TEMP 97.6
[2017-01-04] MEDS: Multivitamin Therapeutic Tab PO SCH (07:42)
--- NOTE | 2017-01-04 12:14 | PCM.PYCHDC ---
Mental Status Examination - Mental Status Examination Orientation: Person, Place, Situation, Time Memory: Intact Mood: Neutral Affect: Broad (and mood congruent) Speech: Appropriate Attention: WNL Concentration: WNL Association: WNL Formal Thought Process: No Impairment Description of patient's judgement and insight: Pt has improved insight into mental and medical illness, pt was compliant with medications and unit rules and regulations, pt was going to groups, was calm, cooperative, socially appropriate, no behavioral incidents, no agitation, no aggression. Psychotic Thoughts and Behaviors: Pt denied v/a/t hallucinations, denied paranoid ideations, pt does not appear to be psychotic, and thought process is goal directed. Suicidal Ideation: No Current Homicidal Ideation?: No Plan: pt adamantly denied thoughts of harming self or others denied intent or plan. Discharge Summary - Discharge Note Reason for Hospitalization: pt was admitted s/p overdose on opioids (unintentional), for observation Psychiatric History (includes Medical, Family, Personal Hx): pt denied previous psychiatric h/o, but has h/o substance abuse Laboratory Data: Abnormal Lab Results 01/04/17 07:00 Beta HCG, Quant 734.83 H 12/30/16 06:30 01/01/17 07:50 Lab Results 01/04/17 07:00: Beta HCG, Quant 734.83 H 01/02/17 07:30: Beta HCG, Quant 253.57 H 01/01/17 07:50: Sodium 141, Potassium 4.0, Chloride 108 H, Carbon Dioxide 29, Anion Gap 8 L, BUN 8, Creatinine 0.9, Est GFR ( Amer) > 60, Est GFR (Non- Af Amer) > 60, Random Glucose 100, Calcium 9.6, Total Bilirubin 1.9 H, AST 37 H D, ALT 65 H, Alkaline Phosphatase 55, Total Protein 7.2, Albumin 4.1, Globulin 3.2, Albumin/Globulin Ratio 1.3 01/01/17 07:50: Hepatitis A IgM Ab Negative, Hep Bs Antigen Negative, Hep B Core IgM Ab Negative, Hepatitis C Antibody Reactive 12/31/16 07:39: RPR Nonreactive 12/31/16 07:39: Free T4 0.83, TSH 3rd Generation 0.41 L 12/31/16 07:39: Fasting Glucose 89, Triglycerides 125, Cholesterol 148, LDL Cholesterol Direct 97, HDL Cholesterol 39 12/30/16 07:00: Urine Color Yellow, Urine Appearance Clear, Urine pH 6.0, Ur Specific [place] 1.025, Urine Protein 30 H, Urine Glucose (UA) Negative, Urine Ketones Negative, Urine Blood Negative, Urine Nitrate Negative, Urine Bilirubin Negative, Urine Urobilinogen 0.2, Ur Leukocyte Esterase Negative, Urine RBC Negative, Urine WBC 0 - 2, Ur Epithelial Cells 3 - 4, Urine Bacteria Few, Urine HCG, Qual Positive 12/30/16 07:00: Urine Opiates Screen Positive H, Urine Methadone Screen Negative , Ur Barbiturates Screen Negative, Ur Phencyclidine Scrn Negative, Ur Amphetamines Screen Negative, U Benzodiazepines Scrn Positive H, U Oth Cocaine Metabols Positive H, U Cannabinoids Screen Negative 12/30/16 06:30: Beta HCG, Quant 55.48 H 12/30/16 06:30: Alcohol, Quantitative 133 H 12/30/16 06:30: Salicylates < 1 L, Acetaminophen < 10.0 L 12/30/16 06:30: Sodium 145, Potassium 3.9, Chloride 109, Carbon Dioxide 28, Anion Gap 12, BUN 11, Creatinine 1.0, Est GFR ( Amer) > 60, Est GFR (Non- Af Amer) > 60, Random Glucose 80, Calcium 9.1, Total Bilirubin 1.0, AST 192 H, ALT 114 H, Alkaline Phosphatase 57, Total Protein 7.5, Albumin 4.2, Globulin 3.3 , Albumin/Globulin Ratio 1.3 12/30/16 06:30: WBC 6.4, RBC 4.41, Hgb 13.2, Hct 39.5, MCV 89.6, MCH 29.9, MCHC 33.4, RDW 13.5, Plt Count 241, MPV 10.1, Gran % 57.8, Lymph % (Auto) 29.5, [place] % (Auto) 9.3 H, Eos % (Auto) 3.1, Baso % (Auto) 0.3, Gran # 3.71, Lymph # 1.9, [place] # 0.6, Eos # 0.2, Baso # 0.02 Vital Signs Temp Pulse Resp BP Pulse Ox 01/04/17 06:51 97.6 F 62 20 103/65 01/03/17 15:00 100 H 121/70 01/03/17 06:46 97.8 F 65 18 126/85 01/02/17 16:00 82 109/57 L 01/02/17 11:48 84 119/57 L 01/01/17 22:05 103 H 110/75 01/01/17 16:00 74 112/66 01/01/17 08:38 57 L 128/64 01/01/17 06:53 98.4 F 57 L 20 128/64 100 12/31/16 17:55 80 122/77 12/31/16 15:00 99.1 F 81 122/77 12/31/16 06:58 98.2 F 58 L 18 111/72 98 12/30/16 16:00 76 91/56 L 12/30/16 11:58 16 12/30/16 10:00 98.2 F 90 18 120/78 99 12/30/16 08:45 92 H 16 111/53 L 98 12/30/16 06:18 98.4 F 97 H 14 121/80 100 Consultations:: List each consultation separately and include: 1. Reason for request. 2. Findings. 3. Follow-up Consultations: medical consult appreciated [facility] team was contacted, discussed case with Dr. Parks 01/02/17, see notes for more detailed info suggestion: vitamins, f/u with [facility] as outpatient, do serial Beta CGT ( was done and it is still going up) Summary of Hospital Course include:: 1. Description of specific treatment plan utilized for patients during their course of treatmen. 2. Summarize the time- course for resolution of acute symptoms and/or regressed behaviors. 3. Describe issues identified and worked on during hospitalization. 4. Describe medication utilized. 5. Describe medical problems identified and treated. 6. Reassessment of suicide risk Summary of Hospital Course: shortly pt is 31 yo Female, with h/o substance use disorder, pt was found unresponsive by family member, pt was given narcan with immediate response, pt was admitted to the psych unit for evaluation and observation of possible intentional overdose on drugs. at the time of initial evaluation pt presented with good personal hygiene, was calm, cooperative, socially appropriate, good ADLs. pt adamantly denied that she wanted to kill herself prior to this hospitalization, but "I was careless if I was of alive when they interviewed me at the Emergency room", pt said she wanted to be admitted because she realized that she needed to have help with her depressive symptoms. pt said that her in February 2016, s/p overdose on drugs, pt said she was clean and sober for the past 9months but relapsed "two to three weeks ago". pt said she was snorting about five bags of heroin a day, every other day bag of cocaine, and was drinking alcohol every other day. pt said that she was feeling guilty about her relapse. pt said that she was feeling depressed because her , "but I was able to function", pt said that she was not feeling hopeless but "I have my moments", pt also said at times she "could cry at the shower and be okay afterwards". pt denied being abused reported that she smokes about a pack a day, counseling provided. pt denied v/a/t hallucinations, no paranoid ideation elicited. no manic symptoms elicited. correction to my initial note, pt is mother of two kids who are under custody of her parents. over the course of this hospitalization, pt was seen by medical team pt's UA showed , which led to the blood work and Beta CGT, which was steadily increasing, pelvic USG did not show intrauterus pregnancyd, [facility] was contacted, as per [facility] it is early and on the level of BCGT 1500 choreonic sac could be observed inside of the uterus. pt's level of BCGT as of today 734. pt willing to be followed up by predator control trapper as outpatient, pt is not sure if she wants to keep the or not, pt said her boyfriend is supportive "he will support any decision I made", at the same time because of the early and no established [facility] physician, rehab places want to be sure that pt is not high risk , want to make sure she has f/u appt with [facility], as well as pt needs to have all lab work and USG result, pt is on waiting list for the [facility] which could accept pt. LINNEA and this marketing writer had prolonged conversation with pt's parents yesterday, Sharmaine Stallworth (pt gave permission). as per parents this marketing writer should keep pt in the hospital until pt will be accepted into the inpatient rehab, at the same time parents were insisting that child protective services to be involved because "she is and she might use drugs again, mother also wants pt to have additional support and if [facility] will be involved, they have some programs to help my daughter", child protective services were called by LINNEA. going back to the pt's presentation pt reported that she feels "much better", pt said that she is not depressed, denied any thoughts of harming self or others, pt denied v/a/t hallucinations, reported to have reasonably good night sleep and appetite, no nausea, no vomiting. pt has future oriented plans, pt wants to make sure she will get into the inpatient rehab, pt also was opened for [facility] program, pt denied any cravings for drugs, wants to quit using drugs, pt said her current boyfriend "never even tried any drugs, he is supportive, may be I will stay with him after discharge." pt was on small dose of ativan in order to avoid alcohol and benzos withdrawals , pt got ativan 1mg x2 doses, 0.5mg x3 doses, trazodone 50mg three doses, catapress prn, pt also was on MVI, nicotine patch. pt tolerated meds well, no side effects observed or reported, AIMS 0, no EPS. pt was educated about all meds, possible risk of teratogenic effect, pt verbalized understanding. Over the course of this hospitalization pt was attending groups, pt also had medication management, had therapeutic milieu. Overall pt improved significantly, pt's affect became brighter, pt was less depressed, has realistic future oriented plans, pt also does not appear to be psychotic, or anxious, pt was socially appropriate, no behavioral issues, pts insight improved as well and soon pt deemed to be ready for discharge. At the time of the discharge pt denied been depressed, denied thoughts of harming self or others, denied psychotic symptoms, and pt does not appeared to be psychotic, denied been anxious, pt is not in imminent danger to self or others, [facility] , information about follow up appointment, time and address provided to the pt, it is patient responsibility to follow up with outpatient clinic, PMD as well as OBGYN and specialists (see LINNEA note for more detailed information). In case pt will need to obtain results of studies pending at discharge pt was provided with contact information of Psychiatric Inpatient unit [phone] as well as Medical Record Department [phone]. Nicotine patch was offered Naltrexone treatment is not indicated this time pt was using opioids, pt also is Counseling about smoking and alcohol cessation provided AA meetings as well as smoking cessation treatment program information was provided by the pt was provided with prescriptions for all of medications (please see medication reconciliation form) Pt was educated about safety plan in case of worsening of symptoms or in case of suicidal or homicidal ideation call 911 or go to the nearest ER, also was educated to take meds as prescribed and stay away from drugs, pt verbalized understanding. - Diagnosis (1) Substance induced mood disorder Current Visit: Yes Status: Acute Priority: Medium (2) Opioid use disorder, moderate, dependence Current Visit: Yes Status: Chronic Priority: Medium - Final Diagnosis (DSM 5) Condition upon Discharge: STABLE Disposition: HOME/ ROUTINE Follow-up Treatment Plan: At the time of the discharge pt denied been depressed, denied thoughts of harming self or others, denied psychotic symptoms, and pt does not appeared to be psychotic, denied been anxious, pt is not in imminent danger to self or others, will be following up at [facility] , information about follow up appointment, time and address provided to the pt, it is patient responsibility to follow up with outpatient clinic, PMD as well as OBGYN and specialists (see note for more detailed information). In case pt will need to obtain results of studies pending at discharge pt was provided with contact information of Psychiatric Inpatient unit [phone] as well as Medical Record Department [phone]. Nicotine patch was offered Naltrexone treatment is not indicated this time pt was using opioids, pt also is Counseling about smoking and alcohol cessation provided AA meetings as well as smoking cessation treatment program information was provided by the pt was provided with prescriptions for all of medications (please see medication reconciliation form) Pt was educated about safety plan in case of worsening of symptoms or in case of suicidal or homicidal ideation call 911 or go to the nearest ER, also was educated to take meds as prescribed and stay away from drugs, pt verbalized understanding. Prescriptions/Medication Reconciliation: Nicotine [Nicotine Patch] 7 each TD DAILY #14 patch.td24 Pnv No.95/Ferrous Fum/Folic AC [ Vitamins Tablet] 1 each PO DAILY #14 tablet - Smoking Cessation Smoking Cessation Medication prescribed: Yes - Antipsychotic Medications Pt discharged on 2 or more routine antipsychotic medications: No
== END 2017-01-04 11:19 | disposition home or self-care (01) | DRG 745 ==
LOC: ED 06:03 → ERH 09:49 → UNDOADMIN 09:55 → ERH 09:55 → PSYC 11:15
PROVIDERS: ADMIT Psychologist; ATTEND Psychiatry & Neurology Psychiatry
DX: F19.94 Other psychoactive substance use, unspecified with psychoactive substance-induced mood disorder (principal); F11.20 Opioid dependence, uncomplicated; T40.1X1A Poisoning by heroin, accidental (unintentional), initial encounter; F17.210 Nicotine dependence, cigarettes, uncomplicated; F10.10 Alcohol abuse, uncomplicated; Y90.6 Blood alcohol level of 120-199 mg/100 ml; Z32.01 Encounter for pregnancy test, result positive; R94.5 Abnormal results of liver function studies

== ENCOUNTER 2017-08-31 15:19 | Emergency (ER) | payer MEDICAID, OTHER ==
[2017-08-31 15:20] VITALS: BMI 29.9
[2017-08-31 16:02] VITALS: PULSE 88; RESP 18; TEMP 98.8; O2SAT 98
--- NOTE | 2017-08-31 16:38 | ED PDOC ---
Arrival/HPI - General Chief Complaint: Female Genitourinary Time Seen by Provider: 08/31/17 16:24 Historian: Patient - History of Present Illness Narrative History of Present Illness (Text): 08/31/17 16:33 A 32 year old female, whose past medical history includes ectopic , HPV , and cholesystectomy, on Vivatrol which she takes monthly, presents to the emergency department with a complaint of several day duration abdominal cramping , lightheadedness, and dizziness. The patient states that she recently took a test for which she tested positive. She notes that her last normal menstrual period was 08/02/17. The patient denies fevers, chills, headache, chest pain, shortness of breath, dyspnea on exertion, cough, nausea, vomiting, diarrhea, back pain, neck pain, dysuria, hematuria, vaginal bleeding/discharge, urinary/bowel changes, or any other complaint. Time/Duration: Other (few days) Symptom Onset: Sudden Symptom Course: Unchanged Activities at Onset: Rest, Light Context: Home Past Medical History - Provider Review Nursing Documentation Reviewed: Yes - Infectious Disease Hx of Infectious Diseases: None - Tetanus Immunization Tetanus Immunization: Unknown, Up to Date - Past Medical History Past Medical History: No Previous - Cardiac Hx Cardiac Disorders: No Hx Hypertension: No - Pulmonary Hx Tuberculosis: No - Neurological HX Cerebrovascular Accident: No Hx Seizures: Yes (post withdrawl from drugs) - HEENT Hx HEENT Disorder: No - Renal Hx Renal Disorder: No - Endocrine/Metabolic Hx Endocrine Disorders: No - Hematological/Oncological Hx Cancer: No - Integumentary Hx Dermatological Disorder: No - Musculoskeletal/Rheumatological Hx Arthritis: Yes Hx Falls: No - Gastrointestinal Hx Gall Bladder Disease: Yes Other/Comment: eptopic . - Genitourinary/Gynecological Hx Sexually Transmitted Diseases: No - Psychiatric Hx Anxiety: Yes Hx Depression: Yes Hx Substance Use: Yes - Surgical History Hx Cholecystectomy: Yes Other/Comment: eptopic . Partial Cervix - Anesthesia Hx Anesthesia: Yes Hx Anesthesia Reactions: No Hx Malignant Hyperthermia: No - Suicidal Assessment Feels Threatened In Home Enviroment: No Family/Social History - Physician Review Nursing Documentation Reviewed: Yes Family/Social History: No Known Family HX Smoking Status: Heavy Smoker > 10 Cigarettes Daily Hx Alcohol Use: Yes Hx Substance Use: Yes Substance used: heroin, marion Hx Substance Use Treatment: No Allergies/Home Meds Allergies/Adverse Reactions: Allergies No Known Allergies Allergy (Verified 08/31/17 16:03) Home Medications: Home Meds Medication Instructions Recorded Confirmed No Known Home Med 08/31/17 08/31/17 Review of Systems - Physician Review All systems were reviewed & negative as marked: Yes - Review of Systems Constitutional: absent: Fevers, Night Sweats Respiratory: absent: SOB, Cough Cardiovascular: absent: Chest Pain, GOMEZ Gastrointestinal: Abdominal Pain (Abdominal cramps). absent: Stool Changes, Diarrhea, Nausea, Vomiting Genitourinary Female: absent: Dysuria, Hematuria, Urine Output Changes, Vaginal Bleeding, Vaginal Discharge Musculoskeletal: absent: Back Pain, Neck Pain Neurological: Dizziness, Other (Lightheadedness) Physical Exam Vital Signs Reviewed: Yes Vital Signs Temp Pulse Resp BP Pulse Ox 08/31/17 19:50 98.8 F 88 18 107/61 98 08/31/17 16:00 98.8 F 88 18 110/73 98 Temperature: Afebrile Blood Pressure: Normal Pulse: Regular Respiratory Rate: Normal Appearance: Positive for: Well-Appearing, Non-Toxic, Comfortable Pain Distress: None Mental Status: Positive for: Alert and Oriented X 3 - Systems Exam Head: Present: Atraumatic, Normocephalic Pupils: Present: PERRL Extroacular Muscles: Present: EOMI Conjunctiva: Present: Normal Mouth: Present: Moist Mucous Membranes Neck: Present: Normal Range of Motion Respiratory/Chest: Present: Clear to Auscultation, Good Air Exchange. No: Respiratory Distress, Accessory Muscle Use Cardiovascular: Present: Regular Rate and Rhythm, Normal S1, S2. No: Murmurs Abdomen: Present: Tenderness (Left lower quadrant tenderness. ) Back: Present: Normal Inspection Upper Extremity: Present: Normal Inspection. No: Cyanosis, Edema Lower Extremity: Present: Normal Inspection. No: Edema Neurological: Present: GCS=15, CN II-XII Intact, Speech Normal Skin: Present: Warm, Dry, Normal Color. No: Rashes Psychiatric: Present: Alert, Oriented x 3, Normal Insight, Normal Concentration Medical Decision Making ED Course and Treatment: 08/31/17 16:39 Impression: A 32 year old female presents to the emergency department with a complain of abdominal cramping, lightheadedness, and dizziness. Differential Diagnosis included but are not limited to: r/o ectopic Plan: -- Transvaginal Ultrasound -- Urinalysis -- Urine Culture -- Labs -- Reassess and disposition Progress Notes: 08/31/17 The pt is feeling better and is painfree. She agrees to follow up in a week for repeat US and beta HCG. US , Transvaginal Dictated and Authenticated by: Jarad Mejia MD 08/31/2017 7:06 PM Eastern Time ([place] & [place]) IMPRESSION: Small anechoic structure within the endometrial cavity possibly an early . Small free pelvic fluid, physiologic change or sequela of ovarian cyst leakage or rupture in the appropriate clinical setting. Consider serial hCG follow-up and repeat ultrasound in one or 2 weeks for more definitive assessment. - Lab Interpretations Lab Results: 08/31/17 17:15 08/31/17 17:15 Lab Results 08/31/17 17:15: Beta HCG, Quant 1086.20 H 08/31/17 17:15: Sodium 140, Potassium 3.7, Chloride 106, Carbon Dioxide 23, Anion Gap 14, BUN 7, Creatinine 0.7, Est GFR ( Amer) > 60, Est GFR (Non- Af Amer) > 60, Random Glucose 82, Calcium 9.1, Total Bilirubin 1.6 H, AST 46 H D , ALT 65 H, Alkaline Phosphatase 43, Total Protein 7.1, Albumin 4.1, Globulin 3.0, Albumin/Globulin Ratio 1.4 08/31/17 17:15: Urine Color Yellow, Urine Appearance Clear, Urine pH 6.0, Ur Specific [place] >= 1.030, Urine Protein Trace H, Urine Glucose (UA) Negative, Urine Ketones Trace H, Urine Blood Negative, Urine Nitrate Negative, Urine Bilirubin Small H, Urine Urobilinogen 0.2, Ur Leukocyte Esterase Trace H, Urine RBC 0 - 2, Urine WBC 1 - 3, Ur Epithelial Cells 10 - 12, Urine Bacteria Mod 08/31/17 17:15: WBC 6.8, RBC 4.26, Hgb 12.7, Hct 36.8, MCV 86.4 D, MCH 29.8, MCHC 34.5, RDW 13.2, Plt Count 256, MPV 10.0, Gran % 65.4, Lymph % (Auto) 27.7, [place] % (Auto) 5.3, Eos % (Auto) 1.3 L, Baso % (Auto) 0.3, Gran # 4.46, Lymph # ( Auto) 1.9, [place] # (Auto) 0.4, Eos # (Auto) 0.1, Baso # (Auto) 0.02 I have reviewed the lab results: Yes - RAD Interpretation Radiology Orders: 08/31/17 16:26 OB TRANSVAGINAL [US] Stat - Scribe Statement The provider has reviewed the documentation as recorded by the Scribe Mervat Manriquez Provider Scribe Attestation: All medical record entries made by the Scribe were at my direction and personally dictated by me. I have reviewed the chart and agree that the record accurately reflects my personal performance of the history, physical exam, medical decision making, and the department course for this patient. I have also personally directed, reviewed, and agree with the discharge instructions and disposition. Disposition/Present on Arrival - Present on Arrival Any Indicators Present on Arrival: No History of DVT/PE: No History of Uncontrolled Diabetes: No Urinary Catheter: No History of Decub. Ulcer: No History Surgical Site Infection Following: None - Disposition Have Diagnosis and Disposition been Completed?: Yes Diagnosis: Threatened Disposition: HOME/ ROUTINE Disposition Time: 19:32 Patient Plan: Discharge Condition: GOOD Discharge Instructions (ExitCare): Threatened Miscarriage Additional Instructions: Follow up with Dr Delaney by calling the number for an appointment or follow up in a week for repeat labs and US. Referrals: Camelia Delaney MD [Medical Doctor] - Follow up with primary Forms: [employer] (Albanian)
[2017-08-31 17:38] LABS: BASO # 0.02 K/mm3 (0.0-2.0); BASO % 0.3 % (0.0-3.0); EOS # 0.1 (0.0-0.7); EOS % 1.3 % (1.5-5.0); GRAN # 4.46 (1.4-6.5); GRAN % 65.4 % (50.0-68.0); HEMOGLOBIN 12.7 g/dL (12.0-16.0); LYMPH # 1.9 (1.2-3.4); LYMPH % 27.7 % (22.0-35.0); MEAN CELL VOLUME 86.4 fl (80.0-105.0); MEAN CORPUSCULAR HEMOGLOBIN 29.8 pg (25.0-35.0); MEAN CORPUSCULAR HGB CONC 34.5 g/dl (31.0-37.0); MONO # 0.4 (0.1-0.6); MONO % 5.3 % (1.0-6.0); RBC 4.26 10^6/uL (3.5-6.1); RED CELL DISTRIBUTION WIDTH 13.2 % (11.5-14.5); WHITE BLOOD COUNT 6.8 10^3/ul (4.5-11.0)
[2017-08-31 17:40] LABS: URINE BILIRUBIN SMALL (NEGATIVE); URINE BLOOD NEGATIVE (NEGATIVE); URINE GLUCOSE (UA) NEGATIVE (NEGATIVE); URINE LEUKOCYTE ESTERASE TRACE Leu/uL (NEGATIVE); URINE PROTEIN TRACE mg/dL (<30 mg/dL); URINE UROBILINOGEN 0.2 E.U./dL (<1 E.U./dL)
[2017-08-31 17:41] LABS: URINE COLOR YELLOW (YELLOW)
[2017-08-31 17:42] LABS: URINE APPEARANCE CLEAR (CLEAR)
[2017-08-31 17:53] LABS: ALB/GLOB RATIO 1.4 (1.1-1.8); ALBUMIN 4.1 g/dL (3.0-4.8); ALT/SGPT 65 U/L (7-56); AST/SGOT 46 U/L (14-36); BLOOD UREA NITROGEN 7 mg/dL (7-21); CALCIUM 9.1 mg/dL (8.4-10.5); GFR AFRICAN-AMERICAN > 60; GFR NON-AFRICAN AMERICAN > 60
[2017-08-31 17:57] LABS: URINE BACTERIA MOD (NEG); URINE RBC 0 - 2 /hpf (0-2)
[2017-08-31 19:55] VITALS: BP 107/61
--- NOTE | 2017-09-02 13:15 | US ---
Date of service: 08/31/2017 HISTORY: Positive with a history of ectopic COMPARISON: . Comparison made with prior ultrasound pelvic ultrasound 12/31/2016 TECHNIQUE: Transabdominal/transvaginal sonographic evaluation of the pelvis performed. FINDINGS: UTERUS: Measures 7.7 x 5.0 x 6.0 cm. Normal in size and appearance. Anteverted. No fibroid or other mass lesion seen. ENDOMETRIUM: Measures 1.6 mm in diameter. . There is a small anechoic structure within the endometrial canal that measures approximately 2.9 mm. This could represent a gestational sac however no discernible yolk sac poor pole seen. Pop while this finding could represent a very early gestation, the possibility of an ectopic must be considered and therefore followup serial serum beta HCG and serial pelvic ultrasound recommended CERVIX: No cervical abnormality identified. RIGHT OVARY: Measures 4.5 x 2.3 x 4.6 cm. No solid mass. Normal flow. LEFT OVARY: Measures 3.0 x 1.4 x 2.1 cm. No solid mass. Normal flow. FREE FLUID: There is small amount of free fluid in the pelvis. OTHER FINDINGS: None. IMPRESSION: There is a small anechoic structure within the endometrial canal that could represent a early gestational sac however the possibility of an ectopic must be considered and therefore followup serial serum beta HCG and serial pelvic ultrasound recommended. There is fluid seen in the pelvis as above.
== END 2017-08-31 19:50 | disposition home or self-care (01) ==
LOC: ED 15:19
DX: O20.0 Threatened abortion (principal)

== ENCOUNTER 2018-02-08 11:40 | Emergency (ER) | payer MEDICAID, OTHER ==
[2018-02-08 11:41] VITALS: BMI 29.9
[2018-02-08 12:01] VITALS: TEMP 98.5
[2018-02-08] MEDS ORDERED: Albuterol 0.083% Inhal Sol (2.5 mg/3 mL) UD INH STA (12:25)
--- NOTE | 2018-02-08 13:22 | ED PDOC ---
Arrival/HPI - General Chief Complaint: Cough, Cold, Congestion Historian: Patient - History of Present Illness Narrative History of Present Illness (Text): 02/08/18 13:18 32yo female with pmhx of depression who present with complaint of nonproductive cough, greenish nasal discharge and congestion, rib pain with cough x one month. Notes that she is currently 7months and have not taken any medication for the symptoms. States symptoms has been worse over the past few days and is difficult for her to sleep at night. Denies fever, chills, SOB, diaphoresis, abdominal pain, vaginal bleeding, any other complaint. 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 - Genitourinary/Gynecological Hx Sexually Transmitted Diseases: No - Psychiatric Hx Anxiety: Yes Hx Depression: Yes Hx Substance Use: Yes - Surgical History Hx Cholecystectomy: Yes Other/Comment: eptopic . Partial Cervix - Anesthesia Hx Anesthesia: Yes Hx Anesthesia Reactions: No Hx Malignant Hyperthermia: No - Suicidal Assessment Feels Threatened In Home Enviroment: No Family/Social History - Physician Review Nursing Documentation Reviewed: Yes Family/Social History: Unknown Family HX Smoking Status: Heavy Smoker > 10 Cigarettes Daily Hx Alcohol Use: Yes Hx Substance Use: Yes Substance used: heroin, marion Hx Substance Use Treatment: No Allergies/Home Meds Allergies/Adverse Reactions: Allergies No Known Allergies Allergy (Verified 08/31/17 16:03) Review of Systems - Physician Review All systems were reviewed & negative as marked: Yes - Review of Systems Constitutional: Normal Eyes: Normal ENT: Sinus Congestion Respiratory: Cough Cardiovascular: Normal Gastrointestinal: Normal Genitourinary Female: Normal Musculoskeletal: Normal Skin: Normal Neurological: Normal Endocrine: Normal Hemo/Lymphatic: Normal Psychiatric: Normal Physical Exam Vital Signs Reviewed: Yes Vital Signs Temp Pulse Resp BP Pulse Ox 02/08/18 11:55 98.5 F 92 H 20 123/83 96 Temperature: Afebrile Blood Pressure: Normal Pulse: Regular Respiratory Rate: Normal Appearance: Positive for: Well-Appearing, Non-Toxic, Comfortable Pain Distress: None Mental Status: Positive for: Alert and Oriented X 3 - Systems Exam Head: Present: Atraumatic, Normocephalic Pupils: Present: PERRL Extroacular Muscles: Present: EOMI Conjunctiva: Present: Normal Mouth: Present: Moist Mucous Membranes Nose (Internal): Present: Edematous (B/L), Other (Tenderness over the maxillary sinus) Neck: Present: Normal Range of Motion Respiratory/Chest: Present: Clear to Auscultation, Good Air Exchange. No: Respiratory Distress, Accessory Muscle Use, Wheezes, Decreased Breath Sounds, Rales, Retracting Cardiovascular: Present: Regular Rate and Rhythm, Normal S1, S2. No: Murmurs Abdomen: No: Tenderness, Distention, Peritoneal Signs Back: Present: Normal Inspection Upper Extremity: Present: Normal Inspection. No: Cyanosis, Edema Lower Extremity: Present: Normal Inspection. No: Edema Neurological: Present: GCS=15, CN II-XII Intact, Speech Normal Skin: Present: Warm, Dry, Normal Color. No: Rashes Psychiatric: Present: Alert, Oriented x 3, Normal Insight, Normal Concentration Medical Decision Making - Medication Orders Current Medication Orders: Discontinued Medications Acetaminophen (Tylenol 325mg Tab) 650 mg PO STAT STA Stop: 02/08/18 12:27 Last Admin: 02/08/18 12:54 Dose: 650 mg MAR Pain/Vitals Document 02/08/18 12:54 JAMES (Rec: 02/08/18 12:54 JAMES [id number]) Pain Reassessment Is This A Pain ReAssessment? No Sleep Is patient sleeping during reassessment? No Presence of Pain Presence of Pain No Albuterol Sulfate (Albuterol 0.083% Inhal Cheryl (2.5 Mg/3 Ml) Ud) 2.5 mg INH STAT STA Stop: 02/08/18 12:26 Last Admin: 02/08/18 12:54 Dose: 2.5 mg Amoxicillin (Amoxil 500 Mg Cap) 500 mg PO STAT STA; Protocol Stop: 02/08/18 12:27 Last Admin: 02/08/18 12:54 Dose: 500 mg Disposition/Present on Arrival - Present on Arrival Any Indicators Present on Arrival: No History of DVT/PE: No History of Uncontrolled Diabetes: No Urinary Catheter: No History of Decub. Ulcer: No History Surgical Site Infection Following: None - Disposition Have Diagnosis and Disposition been Completed?: Yes Diagnosis: Upper respiratory infection Disposition: HOME/ ROUTINE Disposition Time: 13:30 Patient Plan: Discharge Condition: STABLE Discharge Instructions (ExitCare): Bacterial Upper Respiratory Infection, Adult Additional Instructions: Follow up with your Doctor Return to ED for any new symptoms Prescriptions: Albuterol HFA [Ventolin HFA 90 mcg/actuation (8 g)] 2 puff IH [id number] #1 puff Amoxicillin [Amoxil 500 mg Cap] 500 mg PO BID #14 cap Referrals: Virginia Verdugo MD [Medical Doctor] - Follow up with primary
[2018-02-08 13:57] VITALS: BP 120/63; PULSE 86; RESP 18; O2SAT 95
== END 2018-02-08 14:04 | disposition home or self-care (01) ==
LOC: ED 11:40 → MERGE 11:40 → ED 14:04
DX: J06.9 Acute upper respiratory infection, unspecified (principal); O26.892 Other specified pregnancy related conditions, second trimester; Z3A.00 Weeks of gestation of pregnancy not specified